=== PATIENT | female | born 2000 | race Two or more races ===

== ENCOUNTER 2025-05-11 15:09 | Outpatient (REF) | payer BC, SELFPAY ==
--- OUTSIDE RECORDS SUMMARY | 2024-05-05 06:15 | XMS_ITS ---
Demographics Address [address] [place] [address] Mobile Email Address Preferred Language en Marital Status Unknown Quaker Affiliation Unknown Race Unknown Additional Race(s) White Ethnic Group or Author Organization [facility] Address [address] [place], [place] [id number] Care Team Providers Care Navy Material Inspector Name Role Phone Ana Stuart Unavailable [phone] REASON FOR VISIT depo injection Medications Medication SIG (Take, Route, Fr equency, Duration) Notes Start Date End Date Status Depo-Provera 150 MG/ML 1 mL Intramuscular Active Social History Sex Assigned At : Social History Observation Description Sex Assigned At Female Encounters Encounter Location Date Provider Diagnosis Main [address] [place], [place] [id number] 05/05/2024 Ana Stuart Plan Of Treatment No Information Progress Notes * Brianna PERES ADOB:2000 (24 yo F)Acc No.[id number]:05/05/2024 Nurse Visit Note Patient: rBianna SEXTON Provider: Clarisa Stuart :2000 A ge:23 Y S ex:Female Date:05/05/2024 [facility] Subjective: * Chief Complaints: * 1 . Depo injection. * Medical History: * Medications: T aking Depo-Provera 150 MG/ML Suspension 1 mL Intramuscular Objective: * Vitals: Assessment: Plan: * Treatment: * Billing Information: * Visit Code: * Procedure Codes: * Electronic signature of JUAN CARLOS Moseley on 05/11/2025 at 08:47 AM EDT Sign off status: Pending * Provider: Clarisa tSuart Date: 05/05/2024 Generated for Nanci ng/Sveta/eTransmitting on: 0 05/11/2025 08:47 AM EDT
--- OUTSIDE RECORDS SUMMARY | 2025-05-11 09:00 | XMS_ITS | Encounter Summary ---
Demographics Address [address] [place] [address] Home Phone Mobile Phone Email Address Preferred Language en Marital Status Unknown Shinto Affiliation Unknown Race Other Race Ethnic Group or Author Organization [facility] Address [address] [place] [address] Care Team Providers Care Frame Polisher Name Role Phone Esther Charles MD Primary Care Provider Reason for Visit * Reason Comments Well Women Visit Encounter Details Date Type Department Care Team (Late st Contact Info) Description 05/11/2025 9:00 AM EDT Office Visit [facility] [address] [facility] [address] Marge Oseguera NP [address] [facility] [place] [address] Well woman exam with routine gynecological exam; Encounter for other general counseling or advice on contraception Social History Tobacco Use Types Packs/Day Years Used Date Smoking Tobacco: Never Assessed Comments Unknown Sex and Gender Information Value Date Recorded Sex Assigned at Female 01/16/2025 8:54 PM EDT Legal Sex Female 6:34 PM EDT Gender Identity Female 01/16/2025 8:54 PM EDT Sexual Orientation Straight 01/16/2025 8: 54 PM EDT documented as of this encounter Last Filed Vital Signs Vital Sign Reading Time Taken Comments Blood Pressure 120/78 05/11/2025 8:59 AM EDT Pulse - - Temperature - - Respiratory Rate - - Oxygen Saturation - - Inhaled Oxygen Concentration - - Weight 84.8 kg (187 lb) 05/11/2025 8:59 AM EDT Height - - Body Mass Index 34.2 01/18/2025 8:57 AM EDT documented in this encounter Progress Notes * Marge Oseguera NP - 05/11/2025 9:00 AM EDT Reason for Appointment: Patient ID: Brianna Peres is a 24 y.o. female who presents for Well Women Visit Patient presents today for Annual Exam. MEDICATIONS No current outpatient medications ALLERGIES No Known Allergies PROBLEMS Active Ambulatory Problems Diagnosis Date Noted No Active Ambulatory Problems Resolved Ambulatory Problems Diagnosis Date Noted No Resolved Ambulatory Problems Past Medical History: Diagnosis Date Stomach ulcer HISTORY PAST MEDICAL HISTORY SOCIAL HISTORY Past Medical History: Diagnosis Date Stomach ulcer Social History Tobacco Use Smoking status: Not on file Smokeless tobacco: Not on file Substance Use Topics Alcohol use: Not on file Drug use: Not on file FAMILY HISTORY No family history on file. SURGICAL HISTORY History reviewed. No pertinent surgical history. REVIEW OF SYSTEMS Review of Systems: Review of Systems Constitutional: Negative. HENT: Negative. Eyes: Negative. Respiratory: Negative. Cardiovascular: Negative. Gastrointestinal: Negative. Genitourinary: Negative. Musculoskeletal: Negative. Skin: Negative. Neurological: Negative. All other systems reviewed and are negative. Hematological: Negative. Endocrine: Negative. Allergic/Immunologic: Negative. OBJECTIVE Objective: Physical Exam Constitutional: Appearance: Normal appearance. She is well-developed. Genitourinary: Vulva normal. Breasts: Breasts are soft. Right: Normal. Left: Normal. Cardiovascular: Rate and Rhythm: Normal rate and regular rhythm. Pulmonary: Effort: Pulmonary effort is normal. Breath sounds: Normal breath sounds. Abdominal: General: Bowel sounds are normal. There is no distension. Palpations: Abdomen is soft. Tenderness: There is no abdominal tenderness. There is no guarding or rebound. Musculoskeletal: General: No swelling. Normal range of motion. Right lower leg: No edema. Left lower leg: No edema. Neurological: Mental Status: She is alert and oriented to person, place, and time. Skin: General: Skin is warm and dry. Psychiatric: Mood and Affect: Mood normal. Behavior: Behavior normal. Vitals and nursing note reviewed. Exam conducted with a rubber and pounder present. Vitals: Estimated body mass index is 34.2 kg/m?? as calculated from the following: Height as of 25: 5' 2 . Weight as of this encounter: 187 lb. BP: 120/78 No LMP recorded (within months). ASSESSMENT & PLAN ICD-10-CM 1. Well woman exam with routine gynecological exam Z01.419 Pap Smear Annual Exam: Patient presents today for an annual exam. Patient states she is doing well and has no complaints. Pap was obtained without difficulty. Patient was advised of the IUD Mirena is only Progesterone based and will help with cycles. Patient was on oral control and was not consistent with taking. Follow Up: Patient is to return in one year for annual unless needed otherwise. Documented by Shirley Damian LPN on behalf of: Marge Oseguera NP documented in this encounter Plan of Treatment Upcoming Encounters Date Type Department Care Team (Late st Contact Info) Description 05/26/2025 9:30 AM EDT Procedure Visit [facility] [address] [facility] [address] Desahun Wakefield, DO [address] [place] [address] 05/18/2026 10:00 AM EDT Procedure Visit [facility] OB [address] [place] [address] Deshaun Wakefield, DO [address] [place] [address] Scheduled Orders Name Type Priority Associated Diagnoses Orde r Schedule Pap Smear Pathology and Cytology Routine Well woman exam with routine gynecological exam Ordered: 05/11/2025 documented as of this encounter Visit Diagnoses Diagnosis Encounter for other general counseling or advice on contraception documented in this encounter Care Teams Frame Polisher Relationship Specialty Start Date End Date Esther Charles MD PCP - General Family Medicine 02/25/23 documented as of this encounter
--- OUTSIDE RECORDS SUMMARY | 2025-05-11 15:14 | XMS_ITS | Clinical Summary ---
Demographics Address [address] [place] [address] Home Phone Mobile Phone Preferred Language Bengali Marital Status Single Gnosticism Affiliation Unknown Race Unknown Ethnic Group Unknown Author Organization [facility] Address [address] [facility], [address] [place] [address] Care Team Providers Care Boot Liner Maker Name Role Phone Unavailable Primary Care Provider Unavailabl e Allergies No known active allergies Medications No known medications Social History Tobacco Use Types Packs/Day Years Used Date Smoking Tobacco: Never Assessed Comments Unknown Sex and Gender Information Value Date Recorded Sex Assigned at Not on file Legal Sex Female 5:01 AM EST Gender Identity Not on file Sexual Orientation Not on file Last Filed Vital Signs Vital Sign Reading Time Taken Comments Blood Pressure 146/119 09/12/2023 5:58 AM EST Pulse 84 09/12/2023 5:05 AM EST Temperature 36.4 C (97.6 F) 09/12/2023 5:05 AM EST Respiratory Rate 18 09/12/2023 5:05 AM EST Oxygen Saturation 99% 09/12/2023 5:58 AM EST Inhaled Oxygen Concentration - - Weight 84.8 kg (187 lb) 09/12/2023 5:07 AM EST Height 157.5 cm (5' 2 ) 09/12/2023 5:07 AM EST Body Mass Index 34.2 09/12/2023 5:07 AM EST Plan of Treatment Health Maintenance Due Date Last Done Comments Depression Screen 2013 Varicella vaccine (1 of 2 - 13+ 2-dose series) 2014 HIV screen 2016 HPV vaccine (1 - 3-dose series) 2016 Chlamydia/GC screen 2017 Meningococcal B vaccine (1 o f 2 - Standard) 2017 Hepatitis C screen 2019 DTaP/Tdap/Td vaccine (1 - Tdap) 2020 Hepatitis B vaccine (1 of 3 - 19+ 3-dose series) 2020 Pap smear 2022 COVID-19 Vaccine (1 - 2023-2 5 season) 2024 Flu vaccine (#1) 05/20/2025 Hepatitis A vaccine Aged Out No longe r eligible based on patient's age to complete this topic Hib vaccine Aged Out No longer eligi ble based on patient's age to complete this topic Meningococcal (ACWY) vaccine Aged Out No longer eligible based on patient's age to complete this topic Pneumococcal 0-49 years Vaccine Aged Out No longer eligible based on patient's age to complete this topic Polio vaccine Aged Out No longer elig ible based on patient's age to complete this topic Insurance * Guarantor: Brianna Peres Account Type Relation to Patient Date of Phone Billing Address Personal/Family Self 2000 [address] [place] [address] [facility]
--- OUTSIDE RECORDS SUMMARY | 2025-05-11 15:14 | XMS_ITS | Clinical Summary ---
Author Organization [employer] [facility] Address [facility] [id number] [address] [place] [address] Care Team Providers Care Porcelain Finisher Name Role Phone Services, [facility] Primary Care Provider Allergies No known active allergies Medications ibuprofen (MOTRIN) 800 mg tablet Take 1 tablet (800 mg total) by mouth in the morning and 1 tablet (800 mg total) at noon and 1 tablet (800 mg total) before bedtime. 21 tablet 03/17/2022 Active sertraline (ZOLOFT) 50 mg tablet Take 1 tablet (50 mg total) by mouth in the morning. Active hydrOXYzine (ATARAX) 25 mg tablet Take 1 tablet (25 mg total) by mouth 3 (three) times a day as needed for itching. Active benzonatate (TESSALON PERLES) 100 mg capsule Take 1 capsule (100 mg total) by mouth every 8 (eight) hours. 21 capsule 09/14/2022 Active Social History Tobacco Use Types Packs/Day Years Used Date Smoking Tobacco: Former Cigarettes Smokeless Tobacco: Never Tobacco Cessation:Counseling Given: Not Answered Childcare Answer Date Recorded Childcare Unknown 03/31/2019 Employment Answer Date Recorded Employment Unknown 03/31/2019 Purpose - Life Answer Date Recorded Purpose and direction in life Unknown Comments No Sex and Gender Information Value Date Recorded Sex Assigned at Not on file Legal Sex Female 11:58 AM EDT Gender Identity Not on file Sexual Orientation Not on file Last Filed Vital Signs Vital Sign Reading Time Taken Comments Blood Pressure 134/101 09/14/2022 10:37 AM EST Pulse 82 09/14/2022 1:24 PM EST Temperature 36.9 C (98.5 F) 09/14/2022 10:37 AM EST Respiratory Rate 18 09/14/2022 1:24 PM EST Oxygen Saturation 98% 09/14/2022 1:24 PM EST Inhaled Oxygen Concentration - - Weight 83.9 kg (185 lb) 09/14/2022 10:37 AM EST Height 157.5 cm (5' 2 ) 03/17/2022 11:40 AM EDT Body Mass Index 33.84 03/17/2022 11:40 AM EDT Plan of Treatment Health Maintenance Due Date Last Done Comments Depression Screening 2013 Tobacco Screening 2013 Adult BMI Screening 09/14/2023 09/14/2022 DTaP,Tdap and Td Vaccines (7 - Td or Tdap) 03/28/2024 03/28/2014, 12/15/2006, 03/09/2003, Additional history exists COVID-19 Vaccine ( - 2023-2 5 season) 2024 03/23/2021, 02/23/2021 Influenza Vaccine 06/20/2025 06/28/2019, , 07/15/2016, Additional history exists Pap Smear 10/01/2025 10/01/2022 Medical Devices Not on file Procedures Procedure Name Priority Date/Time Associated Diagnosis Comments PAP SMEAR Routine 10/01/2022 11:34 AM EST Encounter for screening for malignant neoplasm of cervix Encounter for screening for human papillomavirus (HPV) from Last 3 Months or Most Recently Relevant to Health Maintenance Results * Pap Smear (10/01/2022 11:34 AM EST) 10/01/2022 11:3 4 AM EST 10/01/2022 11:36 AM EST Narrative COPATH - 10/10/2022 11:46 AM EST [facility] [address] [place] [address] Gynecologic Cytology Consultation Patient Name:RASHAD PERES:2000 (Age: 22)Gender:FTaken:10/01/2022eported:10/10/2022hysician(s):Juan M Cronin M.D. ([phone])Copy To: Rec. #:[id number]: #[id number] Final Cytologic Interpretation ThinPrep Pap Test (Cervical): Satisfactory for evaluation. A transformation zone component is present. NEGATIVE FOR INTRAEPITHELIAL LESION OR MALIGNANCY. Numerous neutrophilic leukocytes are present. To diminish the obscuring effect of abundant blood/lubricant in the specimen, which limited the cellularity of the original slide, this specimen has been washed, reprocessed, and a second slide prepared and examined. /10/10/2022 Interpretation performed at [facility], [address] [place] [address], License number: [id number]. Electronically Signed Out By PRAKASH Liao(ASCP) Date of Last Menstrual Period: (None Given) Other Clinical Conditions: Z12.4 Screening for malignant neoplasm of cervix Z11.51 Screening for HPV Source of Specimen ThinPrep Pap Test (Cervical) Thin Prep Pap (AGRICULTURAL ECONOMICS PROFESSOR) x 2 Fee Code(s): G0145 Juan M Cronin MD PATHOLOGY/CYTOLOGY ORDERABLES nal Result COPATH from Last 3 Months or Most Recently Relevant to Health Maintenance Insurance MEDICAID [place] Care Teams Porcelain Finisher Relationship Specialty Start Date End Date Services, [facility] [address] [place], [place] PCP - General Family Medicine 09/14/22
--- OUTSIDE RECORDS SUMMARY | 2025-05-11 15:14 | XMS_ITS | Encounter Summary ---
Demographics Address [address] [place] [address] Home Phone Mobile Phone Email Address Preferred Language en Marital Status Unknown Rastafari Affiliation Unknown Race Other Race Ethnic Group or Author Organization [facility] Address [address] [place] [facility] [place] [address] Care Team Providers Care It Technical Specialist Name Role Phone Esther Charles MD Primary Care Provider [phone] Encounter Details Date Type Department Care Team (Latest Contact Info) Description 05/09/2025 Travel Social History Tobacco Use Types Packs/Day Years Used Date Smoking Tobacco: Never Assessed Comments Unknown Sex and Gender Information Value Date Recorded Sex Assigned at Female 01/16/2025 8:54 PM EDT Legal Sex Female 6:34 PM EDT Gender Identity Female 01/16/2025 8:54 PM EDT Sexual Orientation Straight 01/16/2025 8: 54 PM EDT documented as of this encounter Plan of Treatment Upcoming Encounters Date Type Department Care Team (Late st Contact Info) Description 05/26/2025 9:30 AM EDT Procedure Visit [facility] [address] [place] [address] Deshaun Wakefield DO [address] [place], [id number] 05/18/2026 10:00 AM EDT Procedure Visit [facility] OB [address] [place] [address] Deshaun Wakefield DO [address] [place] [address] documented as of this encounter Visit Diagnoses Not on filedocumented in this encounter Care Teams It Technical Specialist Relationship Specialty Start Date End Date Esther Charles MD PCP - General Family Medicine 02/25/23 documented as of this encounter
--- OUTSIDE RECORDS SUMMARY | 2025-05-11 15:14 | XMS_ITS | Clinical Summary ---
Demographics Address [address] [place] [address] Home Phone Mobile Phone Email Address Preferred Language en Marital Status Unknown Yazidi Affiliation Unknown Race Other Race Ethnic Group or Author Organization [facility] Address [address] [facility] [place] [address] Care Team Providers Care Detail Technician Name Role Phone Esther Charles MD Primary Care Provider [phone] Allergies No known active allergies Medications desogestrel-ethin yl estradiol (Apri) 0.15-30 MG-MCG tabletIndications :Encounter for initial prescription of contraceptives, unspecified contraceptive Take 1 tablet by mouth Daily 28 tablet 12 02/16/20 025 Discontinued Encounters Date Type Department Care Team Description 05/11/2025 9:00 AM EDT Office Visit [facility] OB [address] [facility] [place] [address] Marge Oseguera NP Well woman exam with routine gynecological exam; Encounter for other general counseling or advice on contraception 05/11/2025 Bamboo flowsheet [facility] OB [address] [place] [address] [place] [address] Marge Oseguera NP 05/09/2025 Travel 04/13/2025 Travel 02/15/2025 Telephone [facility] OB [address] [place], [place] [address] [place] [address] Clarissa Laboy MA 02/14/2025 Refill [facility] OB [address] [place] [address] Deshaun Wakefield DO Encounter for initial prescription of contraceptives, unspecified contraceptive from Last 3 Months Social History Tobacco Use Types Packs/Day Years Used Date Smoking Tobacco: Never Assessed Comments Unknown Sex and Gender Information Value Date Recorded Sex Assigned at Female 01/16/2025 8:54 PM EDT Legal Sex Female 6:34 PM EDT Gender Identity Female 01/16/2025 8:54 PM EDT Sexual Orientation Straight 01/16/2025 8: 54 PM EDT Last Filed Vital Signs Vital Sign Reading Time Taken Comments Blood Pressure 120/78 05/11/2025 8:59 AM EDT Pulse - - Temperature - - Respiratory Rate - - Oxygen Saturation - - Inhaled Oxygen Concentration - - Weight 84.8 kg (187 lb) 05/11/2025 8:59 AM EDT Height 157.5 cm (5' 2 ) 01/18/2025 8:57 AM EDT Body Mass Index 34.2 01/18/2025 8:57 AM EDT Plan of Treatment Upcoming Encounters Date Type Department Care Team (Late st Contact Info) Description 05/26/2025 9:30 AM EDT Procedure Visit [facility] OB [address] [place] [phone] Deshaun Wakefield, [address] [place] [address] 05/18/2026 10:00 AM EDT Procedure Visit [facility] OB [address] [place] [address] Deshaun Wakefield, [address] [place], [place] [id number] Insurance [address] [place] [place] [id number] [facility] Member Subscriber Plan / Payer (Ef fective 2024-Present) Name:Brianna Peres Relation to Subscriber:Child Name:JUANITA MATTHEWS Date of :2001 Address: [address] [id number] Payer ID:Not on file Type:Not on file Address: [facility] [id number] [place] [address] Care Teams Detail Technician Relationship Specialty Start Date End Date Romely, Esther Dobbins MD PCP - General Family Medicine 02/25/23
--- OUTSIDE RECORDS SUMMARY | 2025-05-11 15:14 | XMS_ITS | Encounter Summary ---
Demographics Address [address] [place] [address] Home Phone Mobile Phone Email Address Preferred Language en Marital Status Unknown Sabianist Affiliation Unknown Race Other Race Ethnic Group or Author Organization [facility] Address [address] [place] [address] Care Team Providers Care Suction Drum Drier Operator Name Role Phone Esther Charles MD Primary Care Provider [phone] Encounter Details Date Type Department Care Team (Late st Contact Info) Description 05/11/2025 Bamboo flowsheet [facility] [address] [facility] [place] [address] Marge Oseguera, MARCELINO [address] [facility] [place] [address] Social History Tobacco Use Types Packs/Day Years [...] 05/26/2025 9:30 AM EDT Procedure Visit [facility] OB [address] [place] [address] Deshaun Wakefield DO [address] [place], [facility] 05/18/2026 10:00 AM EDT Procedure Visit [facility] OB [address] [facility] [place] [address] Deshaun Wakefield, DO [address] [place] [address] [place] [address] documented as of this encounter Visit Diagnoses Not on filedocumented in this encounter Care Teams Suction Drum Drier Operator Relationship Specialty Start Date End Date Wonderly, Esther Dobbins MD PCP - General Family Medicine 02/25/23 documented as of this encounter
[2025-05-16 14:08] LABS: Age Gdln ACOG Testing Note (.); IGP, rfx Aptima HPV ASCU Note (.)
== END 2025-05-11 15:10 | disposition home or self-care (01) ==
LOC: LAB 15:09
PROVIDERS: Visit Provider Nurse Practitioner Family
DX: Z01.419 Encounter for gynecological examination (general) (routine) without abnormal findings (principal)
CPT/HCPCS: 88175